=== PATIENT | female | born 2000 | race Caucasian/White ===

== ENCOUNTER 2024-09-27 14:24 | Emergency (ER) | payer OTHER ==
[~2024-09-27] VITALS: Ht 162.6 cm; Wt 48.5 kg
[2024-09-27] MEDS ORDERED: DEPO-PROVE150 MG/11 IM (15:02)
[2024-09-27 15:15] LABS: BASOPHILS 0.8 % (0-2); EOSINOPHILS 0.9 % (0-6); HEMATOCRIT 42.5 % (35.0-50.0); HEMOGLOBIN 14.5 g/dL (12.0-18.0); LYMPHOCYTES 38.2 % (24-44); MCH 29.9 (27-36); MCHC 34.1 g/dl (30-36); MCV 87.6 fl (81-99); MONOCYTES 6.1 % (0-12); PLATELET COUNT 364 K/uL (140-440); RBC 4.85 M/ul (4.3-5.7); RDW 12.7 (10.5-15.0)
[2024-09-27 15:30] LABS: ALBUMIN 4.2 g/dL (3.4-5.0); ALBUMIN/GLOBULIN RATIO 1.02 (1.1-2.4); ANION GAP 15.1 (7-21); BILIRUBIN, TOTAL 0.6 ng/dL (0.2-1.0); BUN/CREATININE RATIO 29.82 (6.0-28.6); CREATININE, SERUM 0.57 mg/dL (0.55-1.02); POTASSIUM 4.1 mmol/L (3.5-5.1); PROTEIN, TOTAL 8.3 g/dL (6.4-8.2)
[2024-09-27 16:44] LABS: BILIRUBIN, URINE NEGATIVE (negative); BLOOD/HGB, URINE NEGATIVE (Negative); KETONE, URINE NEGATIVE (Negative); LEUK ESTERASE, URINE NEGATIVE (negative); NITRITE, URINE NEGATIVE (negative)
[2024-09-27] MEDS ORDERED: ACETAMINOPHEN 325 MG TAB PO ONE (16:45)
[2024-09-27] MEDS ORDERED: IBUPROFEN 400 MG TAB PO ONE (16:45)
[2024-09-27] MEDS ORDERED: HYDROCODON-ACE1 EA10 PO (18:38)
[2024-09-27] MEDS ORDERED: HYDROCODONE/ACETA 5/325 TAB PO ONE (18:45)
[2024-09-27 19:09] VITALS: BP 100/65
== END 2024-09-27 19:09 | disposition home or self-care (01) ==
LOC: ED 14:24
PROVIDERS: Emergency Medicine
DX: R10.32 Left lower quadrant pain (principal); Z88.0 Allergy status to penicillin; Z79.3 Long term (current) use of hormonal contraceptives
CPT/HCPCS: 36415; 76830; 76856; 80053; 81003; 83690; 84703; 85025; 99284-25; A9270